=== PATIENT | female | born 1975 | race Two or more races ===

== ENCOUNTER 2022-11-02 10:19 | Day surgery (SDC) | payer BC ==
[~2022-11-02] VITALS: Ht 152.4 cm; Wt 70.8 kg
[2022-11-02] VITALS (17 sets, daily range): BP systolic 91–127; BP diastolic 51–72
[~2022-11-02 10:19] MED LIST: BIRTH CONTROL PO
[2022-11-02] MEDS ORDERED: normal saline 1000ml 1,000 ML IV SCH ×2 (10:40→13:05)
[2022-11-02] MEDS ORDERED: ESTR10TA4 VG (11:11)
[2022-11-02] MEDS ORDERED: ESTR1PAT97 TOP (11:11)
[2022-11-02] MEDS ORDERED: MAGN250T11 PO (11:11)
[2022-11-02] MEDS ORDERED: ERGO400C PO (11:11)
[2022-11-02] MEDS ORDERED: LEVO75TA7 PO (11:11)
[2022-11-02 11:21] LABS: BASOPHILS % (AUTO) 0.5 % (0-1); EOSINOPHILS # (AUTO) 0.1 X10'3 (0-0.9); EOSINOPHILS % (AUTO) 1.8 % (0-6); HEMATOCRIT 37.6 % (35.0-45.0); HEMOGLOBIN 12.9 g/dl (12.0-16.0); LYMPHOCYTES # (AUTO) 2.9 X10'3 (1.1-4.8); LYMPHOCYTES % (AUTO) 37.7 % (21-51); MEAN CORPUSCULAR HEMOGLOBIN 33.2 PG (27.0-31.0); MEAN CORPUSCULAR HGB CONC 34.3 g/dL (33.0-36.5); MEAN CORPUSCULAR VOLUME 96.8 FL (78-98); MEAN PLATELET VOLUME 8.6 FL (7.4-10.4); MONOCYTES # (AUTO) 0.4 X10'3 (0-0.9); MONOCYTES % (AUTO) 5.4 % (2-12); NEUTROPHILS # (AUTO) 4.2 X10'3 (1.8-7.7); NEUTROPHILS % (AUTO) 54.6 % (42-75); PLATELET COUNT 227 X10'3 (140-440); RED BLOOD COUNT 3.89 X10'6 (4.20-5.60); RED CELL DISTRIBUTION WIDTH 12.5 % (11.5-14.5); WHITE BLOOD COUNT 7.8 X10'3 (4.5-11.0)
[2022-11-02] MEDS ORDERED: desmopressin inj. 21 MCG in normal saline 100ml IV soln 94.75 ML IV ONE (12:05)
[2022-11-02] MEDS ORDERED: NORMAL SALINE IV ONE (12:20)
[2022-11-02] MEDS ORDERED: DESMOPRESSIN IV ONE (12:20)
[2022-11-02 12:28] LABS: ALANINE AMINOTRANSFERASE 41 U/L (12-78); ALBUMIN 3.7 G/DL (3.4-5.0); ALKALINE PHOSPHATASE 114 IU/L (46-116); ANION GAP 9 (8-16); ASPARTATE AMINO TRANSFERASE 30 U/L (10-37); BILIRUBIN,TOTAL 0.3 MG/DL (0.1-1.0); BLOOD UREA NITROGEN 17 MG/DL (7-18); CALCIUM 8.8 MG/DL (8.5-10.1); CHLORIDE 105 MMOL/L (99-107); CREATININE 0.68 MG/DL (0.40-0.90); GLUCOSE 103 MG/DL (70-104); POTASSIUM 3.6 MMOL/L (3.5-5.1); SODIUM 139 MMOL/L (135-145); TOTAL CARBON DIOXIDE 25.3 MMOL/L (24-32); TOTAL PROTEIN 7.4 G/DL (6.4-8.2); eGFR > 90 ML/MIN
[2022-11-02] MEDS ORDERED: midazolam 1 mg/ML 2ml injection ONE (12:40)
[2022-11-02] MEDS ORDERED: fentaNYL/PF 50MCG/1 ML 2ML syringe ONE (12:40)
== END 2022-11-02 17:40 | disposition home or self-care (01) ==
LOC: SSTAY O 10:19
PROVIDERS: ATTEND Radiology Diagnostic Radiology
DX: R31.21 Asymptomatic microscopic hematuria (principal); N28.1 Cyst of kidney, acquired; E03.9 Hypothyroidism, unspecified; E04.9 Nontoxic goiter, unspecified; Z88.2 Allergy status to sulfonamides; Z88.8 Allergy status to other drugs, medicaments and biological substances; Z79.899 Other long term (current) drug therapy; Z98.890 Other specified postprocedural states; Z72.89 Other problems related to lifestyle
CPT/HCPCS: 36415; 50200; 77012; 80053; 85025; 85610; 99152; 99153; J2250; J3010; J7030; 47000; A4615